=== PATIENT | male | born 1950 | race Caucasian/White ===

== ENCOUNTER 2021-12-07 08:34 | Outpatient (CLI) | payer OTHER ==
[2021-12-07] MEDS ORDERED: Iopamidol 370 76% 100 ML VIAL ONE (10:23)
== END 2021-12-07 08:35 | disposition home or self-care (01) ==
LOC: CSHCT 08:34
PROVIDERS: ATTEND Psychiatry & Neurology Neurology
DX: I63.412 Cerebral infarction due to embolism of left middle cerebral artery (principal); R56.9 Unspecified convulsions; I69.398 Other sequelae of cerebral infarction; G93.89 Other specified disorders of brain; I65.23 Occlusion and stenosis of bilateral carotid arteries
CPT/HCPCS: 70496; 70498; 93306; Q9967